=== PATIENT | female | born 1970 | race Caucasian/White ===

== ENCOUNTER 2017-01-18 18:44 | Emergency (ER) | payer SELFPAY ==
[~2017-01-18] VITALS: Ht 167.6 cm; Wt 99.8 kg
[2017-01-18 19:00] VITALS: BP 159/68
[2017-01-18] MEDS ORDERED: SULF1TAB24 PO (20:34)
[2017-01-18] MEDS ORDERED: MUPI22OI2 TP (20:34)
--- NOTE | 2017-01-18 20:34 | PHYS DOC ---
Past History Past Medical History: No Pertinent History Past Surgical History: No Surgical History Alcohol Use: None Drug Use: None Adult General Chief Complaint Chief Complaint: SKIN PROBLEM HPI HPI Patient is a 46 year old F who presents with a rash on the right side of her face and right nose that began after wearing makeup on Saturday for a Halloween republican. She states that she has had mild drainage from the rash on the right side of her nose. She states that both areas have been progressively worsening with increased redness, pain, swelling and warmth to the area. She denies fever sweats or chills. She denies any other associated symptoms including problems with vision, headache or pain with movement of her eyes. Review of Systems Review of Systems Constitutional: Denies fever or chills [] Eyes: Denies change in visual acuity, redness, or eye pain [] HENT: Denies nasal congestion or sore throat [] Respiratory: Denies cough or shortness of breath [] Cardiovascular: No additional information not addressed in HPI [] GI: Denies abdominal pain, nausea, vomiting, bloody stools or diarrhea [] : Denies dysuria or hematuria [] Musculoskeletal: Denies back pain or joint pain [] Integument: Negative except history of present illness Neurologic: Denies headache, focal weakness or sensory changes [] Endocrine: Denies polyuria or polydipsia [] Family History Family History Noncontributory Current Medications Current Medications Medications reviewed Allergies Allergies Allergies Coded Allergies Type Severity Reaction Last Updated Verified No Known Drug Allergies 01/18/17 No Physical Exam Physical Exam Constitutional: Well developed, well nourished, no acute distress, non-toxic appearance. [] HENT: Normocephalic, atraumatic, area of erythema, induration and tenderness just inferior to the right eye. Area of induration and erythema noted on the right lateral Rao Eyes: PERRLA, EOMI, conjunctiva normal, no discharge. [] Neck: Normal range of motion, no tenderness, supple, no stridor. [] Cardiovascular:Heart rate regular rhythm, no murmur [] Lungs & Thorax: Bilateral breath sounds clear to auscultation [] Abdomen: Bowel sounds normal, soft, no tenderness, no masses, no pulsatile masses. [] Skin: Please refer to HEENT Back: No tenderness, no CVA tenderness. [] Extremities: No tenderness, no cyanosis, no clubbing, ROM intact, no edema. [] Neurologic: Alert and oriented X 3, normal motor function, normal sensory function, no focal deficits noted. [] Psychologic: Affect normal, judgement normal, mood normal. [] Current Patient Data Vital Signs Vital Signs Date Time Temp Pulse Resp B/P (MAP) Pulse Ox O2 Delivery O2 Flow Rate FiO2 01/18/17 19:00 98.6 85 20 98 Room Air EKG EKG [] Radiology/Procedures Radiology/Procedures [] Course & Med Decision Making Course & Med Decision Making Pertinent Labs and Imaging studies reviewed. (See chart for details) Kaycee had no signs of orbital involvement. She was given her first dose of antibiotics in the emergency room and a prescription for the remainder of her therapy. She does plan to follow-up with her primary care doctor on Saturday of next week. Dragon Disclaimer Dragon Disclaimer This chart was dictated in whole or in part using Voice Recognition software in a busy, high-work load, and often noisy Emergency Department environment. It may contain unintended and wholly unrecognized errors or omissions. Departure Departure: Impression: Primary Impression: Facial cellulitis Disposition: HOME, SELF-CARE Condition: STABLE Referrals: DEON MAGDALENO (PCP) Patient Instructions: Cellulitis Additional Instructions: Kaycee was seen in the emergency department for a rash on her face. No emergency medical condition was found on history or physical exam. Her symptoms are most consistent with a skin infection for which she was started on an antibiotic. She was also given a topical antibiotic. She is advised to follow- up with her primary care doctor in the next 3-5 days and return to the emergency room if she develops new or worsening symptoms. Scripts Mupirocin (MUPIROCIN) 22 Gm Oint...g. 1 JOSE ANGEL TP TID for 7 Days, #22 GM Prov: VANESSA LOMELI MD 01/18/17 Sulfamethoxazole/Trimethoprim (BACTRIM DS TABLET) 1 Each Tablet 1 TAB PO BID for 7 Days, #14 TAB Prov: VANESSA LOMELI MD 01/18/17 VANESSA LOMELI MD Jan 18, 2017 20:34
[2017-01-18] MEDS ORDERED: SMZ/TMP 800/160MG TABLET. PO ONE (20:45)
== END 2017-01-18 20:40 | disposition home or self-care (01) ==
LOC: ER 18:44
DX: L03.211 Cellulitis of face (principal)
CPT/HCPCS: 99283

== ENCOUNTER 2020-03-18 20:27 | Emergency (ER) | payer SELFPAY ==
[~2020-03-18] VITALS: Ht 167.6 cm; Wt 123.0 kg
[~2020-03-18 20:27] MED LIST: MUPI22OI2 TP; SULF1TAB24 PO
[2020-03-18] MEDS ORDERED: MORPHINE SULFATE 4 MG/ML DISP.SYRIN. IV ONE (20:45)
[2020-03-18 21:26] LABS: BASO # 0.1 x10^3/uL (0.0-0.2); BASO % 1 % (0-3); EOS # 0.2 x10^3/uL (0.0-0.7); EOS % 1 % (0-3); HEMOGLOBIN 14.5 g/dL (12.0-15.5); LYMPH # 2.3 x10^3/uL (1.0-4.8); LYMPH % 11 % (24-48); MEAN CORPUSCULAR HEMOGLOBIN 29 pg (25-35); MEAN CORPUSCULAR HGB CONC 34 g/dL (31-37); MEAN CORPUSCULAR VOLUME 87 fL (79-100); MONO # 1.1 x10^3/uL (0.0-1.1); MONO % 5 % (0-9); NEUT # 17.1 x10^3uL (1.8-7.7); NEUT % 83 % (31-73); PLATELET COUNT 363 x10^3/uL (140-400); RED BLOOD COUNT 4.97 x10^6/uL (3.50-5.40); RED CELL DISTRIBUTION WIDTH 14.1 % (11.5-14.5); WHITE BLOOD COUNT 20.8 x10^3/uL (4.0-11.0)
[2020-03-18 21:33] LABS: CALCIUM 8.9 mg/dL (8.5-10.1); CREATININE 0.7 mg/dL (0.6-1.0); GFR 89.3; POTASSIUM 3.5 mmol/L (3.5-5.1)
--- NOTE | 2020-03-18 21:33 | RAD ---
Exam: CT abdomen/pelvis without intravenous contrast Indication: Right lower quadrant pain Comparison: None Technique: Helical CT imaging performed of the abdomen and pelvis without the use of intravenous cont rast. Sagittal and coronal reformats were obtained. One or more of the following individualized dose reduction techniques were utilized for this examinat ion: 1. Automated exposure control 2. Adjustment of the mA and/or kV according to patient size 3. Use of iterative reconstruction technique. Findings: Inherently limited evaluation without intravenous contrast. Lower chest: Lung bases are clear. Heart is normal in size. Liver: The liver is enlarged measuring 21 cm craniocaudally and diffusely low in attenuation. Gallbladder/Biliary Tree: Normal. Pancreas: Normal. Spleen: Normal. Adrenal Glands: Normal. Kidneys/Ureters/Bladder: Normal. No urolithiasis or hydronephrosis. Reproductive Organs: Uterus is anteverted and normal in size measuring 10.7 x 7.3 x 7.2 cm. There is thickening of the anterior fundal wall without discrete mass visualized. Ovaries are unremarkable. Stomach, small bowel, and colon: Stomach, small bowel, and appendix are normal. Appendix is seen on i mage 55-66 coronal series. The colon is normal. Vasculature: Abdominal aorta and inferior vena cava are normal. Lymph Nodes: Normal. Peritoneum and retroperitoneum: No free fluid or free air. Bones: No acute osseous abnormality. There are chronic bilateral L5 pars defects with grade 1 spondyl olisthesis and severe degenerative disc disease at L5-S1. This results in severe bilateral foraminal narrowing. Impression: 1. No acute abnormality. Normal appendix. 2. Prominent appearance of the uterus. Consider correlation with pelvic ultrasound for underlying ma ss or endometrial hyperplasia. 3. Hepatomegaly and hepatic steatosis. 3. Chronic L5 spondylolysis with grade 1 spondylolisthesis, severe degenerative disc disease, and se shorty bilateral foraminal narrowing at L5-S1. Electronically signed by: Brigitte Chan MD (03/18/2020 9:31 PM) [id number]
[2020-03-18 21:38] LABS: ALBUMIN 3.5 g/dL (3.4-5.0); ALBUMIN/GLOBULIN RATIO 0.9 (1.0-1.7); TOTAL BILIRUBIN 0.5 mg/dL (0.2-1.0); TOTAL PROTEIN 7.6 g/dL (6.4-8.2)
[2020-03-18 21:56] LABS: BACTERIA,URINE 0 /HPF (0-FEW); BILIRUBIN,URINE NEG (NEG); CLARITY,URINE CLEAR; COLOR,URINE YELLOW; GLUCOSE,URINE NEG (NEG); NITRITE,URINE NEG (NEG); RBC,URINE RARE /HPF (0-2); SQUAMOUS EPITHELIAL CELL,UR FEW /LPF; UROBILINOGEN,URINE 0.2 mg/dL (0.2 mg/dL); WBC,URINE RARE /HPF (0-4)
[2020-03-18] MEDS ORDERED: ONDANSETRON PF 4 MG/2 ML VIAL. IVP ONE (22:00)
[2020-03-18 22:24] LABS: % LYMPHS 10 % (24-48); % MONOS 7 % (0-10); % SEGS 83 % (35-66)
[2020-03-18 22:25] LABS: U PREG PATIENT NEGATIVE (NEG)
[2020-03-18 22:26] LABS: PLT ESTIMATE ADEQUATE (ADEQUATE)
[2020-03-18 22:30] VITALS: BP 118/65
[2020-03-18] MEDS ORDERED: CEPH-264 PO (22:30)
[2020-03-18] MEDS ORDERED: IV NORMAL SALINE 1,000ML 1,000 ML IV ONE (22:30)
[2020-03-18] MEDS ORDERED: TAMS0.4C97 PO (22:31)
--- NOTE | 2020-03-18 22:31 | PHYS DOC ---
Past History Past Medical History: No Pertinent History, Diabetes Additional Past Medical Histor: is starting to go thru menopause Past Surgical History: Tubal ligation Alcohol Use: None Drug Use: None Adult General Chief Complaint Chief Complaint: ABDOMINAL PAIN HPI HPI Patient is a 49-year-old female who presents with right flank pain. States pain was first noticed yesterday evening without any known inciting event and/or trauma. Certain motions and jolting/jumping movements make worse, she has taken ibuprofen and Tylenol with relief in pain. Patient reports focal sharp pains that originate near base of rib cage and deep, states it radiates into right lower abdominal quadrant area. She has history of tubal ligation but no other prior abdominal surgeries. Patient reports having decreased appetite and p.o. intake due to ongoing nausea and x4 episodes of nonbloody nonbilious vomit suffered yesterday evening, she has been too afraid to eat today. She called and discussed case with her friend who is a nurse, she was subsequently advised to come to our ER for evaluation for concern of appendicitis. Of note, patient has no COVID-19 contact, no fever, no chest pain, no shortness of breath, no cough, no urinary symptoms. Denies alcohol or illicit drug abuse. Review of Systems Review of Systems Fourteen body systems of review of systems have been reviewed. See HPI for pertinent positives and negative responses, other meredith all other systems are negative, non-pertinent or non-contributory Current Medications Current Medications Current Medications Medications (Trade) Dose Ordered Sig/Kenisha Start Time Stop Time Status Last Admin Dose Admin Morphine Sulfate (Morphine 4mg Syringe) 4 mg 1X ONCE 03/18/20 20:45 03/18/20 20:48 DC 03/18/20 21:52 4 MG Ondansetron HCl (Zofran) 4 mg 1X ONCE 03/18/20 22:00 03/18/20 22:01 DC 03/18/20 21:52 4 MG Sodium Chloride 1,000 ml @ 1,000 mls/hr 1X ONCE 03/18/20 22:30 03/18/20 23:29 03/18/20 22:10 1,000 MLS/HR Allergies Allergies Allergies Coded Allergies Type Severity Reaction Last Updated Verified No Known Drug Allergies 03/18/20 No Physical Exam Physical Exam Constitutional: Well developed, well nourished, ambulatory but appears uncomfortable, non-toxic appearance. HENT: Normocephalic, atraumatic, bilateral external ears normal, oropharynx moist, no oral exudates, nose normal. Eyes: PERRLA, EOMI, conjunctiva normal, no discharge. Neck: Normal range of motion, no tenderness, supple, no stridor. Cardiovascular: Heart rate regular, sinus rhythm, no murmurs rubs or gallops Lungs & Thorax: Bilateral breath sounds clear to auscultation Abdomen: Bowel sounds normal, soft, tenderness along right flank and right lower quadrant, positive McBurney point with guarding present, no rebound, negative Rovsing, no obturator sign, no heel strike, no Bonilla's, no masses, no pulsatile masses. Nonsurgical abdomen, no peritoneal signs Skin: Warm, dry, no erythema, no rash. Back: No tenderness, no CVA tenderness. Extremities: No tenderness, no cyanosis, no clubbing, ROM intact, no edema. Neurologic: Alert and oriented X 3, grossly normal motor & sensory function, no focal deficits noted. Psychologic: Affect normal, judgement normal, anxious mood Current Patient Data Vital Signs Vital Signs Date Time Temp Pulse Resp B/P (MAP) Pulse Ox O2 Delivery O2 Flow Rate FiO2 03/18/20 20:35 99.1 110 20 125/84 (98) 98 Room Air Lab Results Laboratory Tests Test 03/18/20 20:45 03/18/20 21:00 Urine Collection Type Void Urine Color Yellow Urine Clarity Clear Urine pH 6.5 Urine Specific Manning 1.010 Urine Protein Neg (NEG-TRACE) Urine Glucose (UA) Neg mg/dL (NEG) Urine Ketones (Stick) Neg mg/dL (NEG) Urine Blood Trace (NEG) Urine Nitrite Neg (NEG) Urine Bilirubin Neg (NEG) Urine Urobilinogen Dipstick 0.2 mg/dL (0.2 mg/dL) Urine Leukocyte Esterase Neg (NEG) Urine RBC Rare /HPF (0-2) Urine WBC Rare /HPF (0-4) Urine Squamous Epithelial Cells Few /LPF Urine Bacteria 0 /HPF (0-FEW) White Blood Count 20.8 x10^3/uL (4.0-11.0) H Red Blood Count 4.97 x10^6/uL (3.50-5.40) Hemoglobin 14.5 g/dL (12.0-15.5) Hematocrit 43.0 % (36.0-47.0) Mean Corpuscular Volume 87 fL (79-100) Mean Corpuscular Hemoglobin 29 pg (25-35) Mean Corpuscular Hemoglobin Concent 34 g/dL (31-37) Red Cell Distribution Width 14.1 % (11.5-14.5) Platelet Count 363 x10^3/uL (140-400) Neutrophils (%) (Auto) 83 % (31-73) H Lymphocytes (%) (Auto) 11 % (24-48) L Monocytes (%) (Auto) 5 % (0-9) Eosinophils (%) (Auto) 1 % (0-3) Basophils (%) (Auto) 1 % (0-3) Neutrophils # (Auto) 17.1 x10^3uL (1.8-7.7) H Lymphocytes # (Auto) 2.3 x10^3/uL (1.0-4.8) Monocytes # (Auto) 1.1 x10^3/uL (0.0-1.1) Eosinophils # (Auto) 0.2 x10^3/uL (0.0-0.7) Basophils # (Auto) 0.1 x10^3/uL (0.0-0.2) Platelet Estimate Pending Sodium Level 135 mmol/L (136-145) L Potassium Level 3.5 mmol/L (3.5-5.1) Chloride Level 99 mmol/L (98-107) Carbon Dioxide Level 25 mmol/L (21-32) Anion Gap 11 (6-14) Blood Urea Nitrogen 9 mg/dL (7-20) Creatinine 0.7 mg/dL (0.6-1.0) Estimated GFR (Cockcroft-Gault) 89.3 BUN/Creatinine Ratio 13 (6-20) Glucose Level 120 mg/dL (70-99) H Calcium Level 8.9 mg/dL (8.5-10.1) Total Bilirubin 0.5 mg/dL (0.2-1.0) Aspartate Amino Transferase (AST) 18 U/L (15-37) Alanine Aminotransferase (ALT) 33 U/L (14-59) Alkaline Phosphatase 74 U/L (46-116) Total Protein 7.6 g/dL (6.4-8.2) Albumin 3.5 g/dL (3.4-5.0) Albumin/Globulin Ratio 0.9 (1.0-1.7) L EKG EKG [] Radiology/Procedures Radiology/Procedures Exam: CT abdomen/pelvis without intravenous contrast Indication: Right lower quadrant pain Comparison: None Technique: Helical CT imaging performed of the abdomen and pelvis without the use of intravenous contrast. Sagittal and coronal reformats were obtained. One or more of the following individualized dose reduction techniques were utilized for this examination: 1. Automated exposure control 2. Adjustment of the mA and/or kV according to patient size 3. Use of iterative reconstruction technique. Findings: Inherently limited evaluation without intravenous contrast. Lower chest: Lung bases are clear. Heart is normal in size. Liver: The liver is enlarged measuring 21 cm craniocaudally and diffusely low in attenuation. Gallbladder/Biliary Tree: Normal. Pancreas: Normal. Spleen: Normal. Adrenal Glands: Normal. Kidneys/Ureters/Bladder: Normal. No urolithiasis or hydronephrosis. Reproductive Organs: Uterus is anteverted and normal in size measuring 10.7 x 7.3 x 7.2 cm. There is thickening of the anterior fundal wall without discrete mass visualized. Ovaries are unremarkable. Stomach, small bowel, and colon: Stomach, small bowel, and appendix are normal. Appendix is seen on image 55-66 coronal series. The colon is normal. Vasculature: Abdominal aorta and inferior vena cava are normal. Lymph Nodes: Normal. Peritoneum and retroperitoneum: No free fluid or free air. Bones: No acute osseous abnormality. There are chronic bilateral L5 pars defects with grade 1 spondylolisthesis and severe degenerative disc disease at L5-S1. This results in severe bilateral foraminal narrowing. Impression: 1. No acute abnormality. Normal appendix. 2. Prominent appearance of the uterus. Consider correlation with pelvic ultrasound for underlying mass or endometrial hyperplasia. 3. Hepatomegaly and hepatic steatosis. 3. Chronic L5 spondylolysis with grade 1 spondylolisthesis, severe degenerative disc disease, and severe bilateral foraminal narrowing at L5-S1. Electronically signed by: Brigitte Chan MD (03/18/2020 9:31 PM) [id number] Heart Score HEART Score for Chest Pain: HEART Score for Chest Pain Response (Comments) Value History Slighlty/Non-Suspicious 0 Age >45 - < 65 1 Risk Factors 1 or 2 Risk Factors 1 Total 2 Risk Factors: Risk Factors: DM, Current or recent (<one month) smoker, HTN, HLP, family history of CAD, obesity. Risk Scores: Risk Factors: DM, Current or recent (<one month) smoker, HTN, HLP, family history of CAD, obesity. Course & Med Decision Making Course & Med Decision Making Pertinent Labs and Imaging studies reviewed. (See chart for details) I discussed with patient there is no obvious emergent and/or surgical findings after comprehensive work-up. I discussed potential diagnosis of kidney stone not picked up on CT imaging based on history, physical exam findings and trace blood in urine. Joint decision to cover for infected stone with antibiotics, use of Flomax with str ainer, and NSAIDs/Tylenol for pain I also discussed potential for performing pelvic exam and subsequent pelvic ultrasonography to rule out any other concerning/emergent causes such as ovarian torsion but patient deferred, states she did not want pelvic exam, states it is cheaper to have ultrasound with her PCP I did disclose this might be acute presentation more concerning pathology and offered transfer for admission for serial abdominal exams and evaluation by surgical team but patient declined. She has good access to PCP and prefers trying outpatient follow-up and repeat evaluation Strict return precautions were discussed with good understanding by patient, all questions and concerns addressed prior to your departure Dragon Disclaimer Dragon Disclaimer This electronic medical record was generated, in whole or in part, using a voice recognition dictation system. Departure Departure: Impression: Primary Impression: Right lower quadrant abdominal pain Disposition: 01 DC HOME SELF CARE/HOMELESS Condition: IMPROVED Referrals: DEON MAGDALENO (PCP) Patient Instructions: Abdominal Pain (Nonspecific) Additional Instructions: You have been evaluated in the Emergency Department today for abdominal pain. Your evaluation was not suggestive of any emergent condition requiring medical intervention at this time. However, some abdominal problems make take more time to appear. Therefore, it is important for you to watch for any new symptoms or worsening of your current condition. As discussed, you are being treated for potential infected kidney stone based on laboratory findings concerning for bacterial infection in setting of trace blood in urine and right flank/lower quadrant pain I did discuss utility of performing pelvic ultrasound to rule out other abnormalities such as ovarian torsion while here in ER but you deferred to have this done by her primary care physician in outpatient setting Return to the Emergency Department if you experience worsening pain, persistent fevers greater than 100.4, recurrent vomiting, blood in vomit, blood in stool, dark tarry stool, chest pain, difficulty breathing, or any other concerning symptoms. Please take prescribed antibiotics as instructed and Tylenol and/or ibuprofen as needed for pain. It was a pleasure to take care of you and I wish you the best going forward Scripts Tamsulosin Hcl (FLOMAX) 0.4 Mg Cap.er.24h 1 CAP PO DAILY for kidney stone, #30 CAP 11 Refills Prov: JUHI COCHRAN DO 03/18/20 Cephalexin (KEFLEX) 500 Mg Capsule 1000 MG PO BID for INFECTION for 14 Days, #56 TAB Prov: JUHI COCHRAN DO 03/18/20 JUHI COCHRAN DO Mar 18, 2020 22:31
[2020-03-18] MEDS ORDERED: TAMSULOSIN 0.4 MG CAP.ER.24H. PO ONE (23:00)
[2020-03-18] MEDS ORDERED: CEPHALEXIN 250 MG CAPSULE PO ONE (23:00)
== END 2020-03-18 22:50 | disposition home or self-care (01) ==
LOC: ER 20:27
DX: R10.31 Right lower quadrant pain (principal); R11.2 Nausea with vomiting, unspecified; E11.9 Type 2 diabetes mellitus without complications; Z98.51 Tubal ligation status
CPT/HCPCS: 36415; 74176; 80053; 81001; 81025; 85007; 85025; 96374; 96375; 99284; J2270; J2405; J7030